=== PATIENT | female | born 1955 | race Caucasian/White ===

== ENCOUNTER 2024-11-11 10:21 | Outpatient (RCR) | payer OTHER ==
[~2024-11-11 10:21] MED LIST: CARAFATE1 GM/10 ML PO; CRESTOR10 MG PO; PANTOPRAZOLE PO; WELCHOL625 MG PO
== END 2024-11-17 ==
LOC: PT 10:21
PROVIDERS: ATTEND Student in an Organized Health Care Education/Training Program
DX: M47.26 Other spondylosis with radiculopathy, lumbar region (principal)